=== PATIENT | female | born 1970 | race Caucasian/White ===

== ENCOUNTER 2019-11-14 06:55 | Emergency (ER) | payer OTHER ==
[~2019-11-14] VITALS: Ht 175 cm; Wt 52.0 kg
[2019-11-14] MEDS ORDERED: IBUPROFEN 600 MG (MOTRIN) TAB PO ONE (07:15)
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
--- NOTE | 2019-11-14 07:31 | Diagnostic Imaging Report ---
INDICATION: Status post fall, pain TECHNIQUE: 3 views of the left knee CORRELATION STUDY: None FINDINGS: The joint spaces are maintained. The articular surfaces are smooth and preserved. There is no acute bony abnormality. Soft tissues are unremarkable. IMPRESSION: 1. Negative for acute bony abnormality of the knee. Dictated by: Dictated on workstation # [id number]
--- NOTE | 2019-11-14 07:32 | Diagnostic Imaging Report ---
INDICATION: Post fall, pain TECHNIQUE: Three views of the left shoulder CORRELATION STUDY: None FINDINGS: The glenohumeral and acromioclavicular alignment are maintained and unremarkable. There is no evidence for acute fracture or dislocation. The visualized soft tissues are unremarkable. IMPRESSION: 1. Negative for acute bony abnormality about the shoulder. Dictated by: Dictated on workstation # [id number]
[2019-11-14 08:07] VITALS: BP 142/87
== END 2019-11-14 08:05 | disposition home or self-care (01) ==
LOC: ER FS 07:00
DX: S40.012A Contusion of left shoulder, initial encounter (principal); S80.02XA Contusion of left knee, initial encounter; Z88.0 Allergy status to penicillin; V89.2XXA Person injured in unspecified motor-vehicle accident, traffic, initial encounter
CPT/HCPCS: 73030; 73562

== ENCOUNTER 2020-08-05 10:17 | Outpatient (RCR) | payer OTHER | END 2020-11-03 | disposition home or self-care (01) | LOC: CARD 10:17 | PROVIDERS: ATTEND Internal Medicine Cardiovascular Disease | DX: R07.9 Chest pain, unspecified (principal); R55 Syncope and collapse; R06.02 Shortness of breath; R00.2 Palpitations | CPT/HCPCS: 93225; 93226; 93306 ==

== ENCOUNTER → 2020-08-05 | Outpatient (CLI) | payer OTHER ==
--- NOTE | 2020-08-05 12:00 | Diagnostic Imaging Report ---
CLINICAL INDICATION: Patient has been having headaches and syncopal episodes. EXAM: MRI of the brain performed without IV contrast. Sequences include axial DWI, ADC map, axial T2, axial FLAIR, axial T1, axial gradient echo, and sagittal T1. COMPARISON: None. FINDINGS: There is no evidence of acute cerebral infarct, intracranial hemorrhage, or gross mass effect. The brain parenchymal volume appears appropriate for patient's age. There is normal col[place]-white matter distinction. There is no significant midline shift or herniation. The [place] vascular structures show no gross abnormality as visualized. The pituitary gland, sella, and suprasellar regions are unremarkable as visualized. There is no evidence of hydrocephalus. The basal cisterns are unremarkable. The skull, extracranial soft tissue, and orbits are unremarkable. There is mild mucosal thickening involving the left ethmoid sinus region. Temporal bones show no significant abnormality. IMPRESSION: Mild ethmoid sinus disease. Otherwise, unremarkable MRI of the brain. Dictated by: Dictated on workstation # [id number]
== END ==
LOC: RAD 10:16
PROVIDERS: ATTEND Nurse Practitioner Family
DX: J32.2 Chronic ethmoidal sinusitis (principal); R55 Syncope and collapse
CPT/HCPCS: 70551